=== PATIENT | male | born 1995 | race Caucasian/White ===

== ENCOUNTER 2018-09-23 10:55 | Emergency (ER) | payer OTHER, BC ==
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
[2018-09-23 12:17] LABS: Basophils # (A) 0.1 k/uL (0-0.2); Basophils % (A) 1 %; Eosinophils # (A) 0.4 k/uL (0-0.7); Eosinophils % (A) 2 %; HCT 41.5 % (39.0-53.0); HGB 13.8 gm/dL (13.0-17.5); Lymphocytes # (A) 2.4 k/uL (1.0-4.8); Lymphocytes % (A) 14 %; MCH 25.8 pg (25.0-35.0); MCHC 33.2 g/dL (31.0-37.0); MCV 77.5 fL (80.0-100.0); Monocytes # (A) 0.8 k/uL (0-1.0); Monocytes % (A) 5 %; Neutrophils # (A) 13.2 k/uL (1.3-7.7); Neutrophils % (A) 77 %; Platelet Count 362 k/uL (150-450); RBC 5.35 m/uL (4.30-5.90); RDW 15.8 % (11.5-15.5); WBC 17.2 k/uL (3.8-10.6)
[2018-09-23 12:26] LABS: ALT 64 U/L (21-72); AST 39 U/L (17-59); African American GFR (CKD) >90 (>60 ml/min/1.73 sqM); Albumin 4.5 g/dL (3.5-5.0); Alkaline Phosphatase 65 U/L (38-126); Anion Gap 11 mmol/L; Blood Urea Nitrogen 16 mg/dL (9-20); Calcium 9.7 mg/dL (8.4-10.2); Carbon Dioxide 24 mmol/L (22-30); Chloride 105 mmol/L (98-107); Glucose 108 mg/dL (74-99); Potassium 4.2 mmol/L (3.5-5.1); Sodium 140 mmol/L (137-145); Total Bilirubin 0.3 mg/dL (0.2-1.3); Total Protein 7.4 g/dL (6.3-8.2)
[2018-09-23 12:28] LABS: INR 0.9 (<1.2)
[2018-09-23 12:29] LABS: Partial Thromboplastin Time 25.1 sec (22.0-30.0); Prothrombin Time 10.1 sec (9.0-12.0)
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
[2018-09-23 13:22] VITALS: RESP 16
[2018-09-23 14:07] VITALS: BP 128/94; PULSE 94; TEMP 98.6
== END 2018-09-23 14:10 | disposition home or self-care (01) ==
LOC: EC 10:55
DX: S30.811A Abrasion of abdominal wall, initial encounter (principal); S99.911A Unspecified injury of right ankle, initial encounter; Z91.09 Other allergy status, other than to drugs and biological substances; V49.40XA Driver injured in collision with unspecified motor vehicles in traffic accident, initial encounter; Y92.410 Unspecified street and highway as the place of occurrence of the external cause
CPT/HCPCS: 36415; 86900; 86901; 80053; 84484; 85025; 85610; 85730; 86850; 73610; 73630; 72125; 70450; 71260; 74177; 99284; Q9967